=== PATIENT | female | born 2005 | race Caucasian/White ===

== ENCOUNTER 2024-06-05 15:50 | Emergency (ER) | payer BC, SELFPAY ==
[2024-06-05 16:03] VITALS: BP 120/72; PULSE 74; RESP 16; TEMP 37.1; O2SAT 100
--- NOTE | 2024-06-05 16:05 | ED.URI ---
HPI - URI/Sore Throat General Chief Complaint: Upper Respiratory Infection Stated Complaint: SORE THROAT/HEADACHE/SINUS PRESSURE/CP Time Seen by Provider: 06/05/24 16:05 Source: patient Mode of arrival: ambulatory Limitations: no limitations History of Present Illness HPI Narrative: Melody is a 19-year-old female patient presenting to the clinic today with complaints of low-grade fever, sore throat, headache, sinus pressure, congestion, feeling short of breath, chest discomfort with taking deep breaths. MD elicited complaint: sore throat and nasal congestion Related Data Home Medications ?Medication ?Instructions ?Recorded ?Confirmed ?Last Taken ?Type desogestrel 0.15 mg-ethinyl tablet 06/05/24 Unknown History estradiol 0.03 mg tablet (Isibloom) sertraline 50 mg tablet mg 06/05/24 Unknown History Review of Systems Review of Systems: Pertinent positives per HPI. Patient denies any rash, visual changes, dizziness, palpitations, nausea, vomiting, diarrhea, constipation, abdominal pain, or any urinary issues. PMFSH Comments At the time of my signature, I reviewed and agree with the nursing past medical, surgical, social, and family history. There is no relevant family history pertinent to the patient complaint. Exam Narrative: General: Well-developed, well nourished, in no apparent distress Head: Normocephalic, atraumatic Eyes: Pupils equally round and reactive to light bilaterally, EOM intact, sclera and conjunctive clear, no discharge, lids normal Ears: TMs intact and clear, ear canals clear, no drainage, grossly hearing normal. Nose: Nares patent, clear nasal discharge, no inflammation, no sinus tenderness. Mouth: Oral pharynx mildly red without lesions or masses, good dentition, MMM. Postnasal drip Neck: Supple, trachea midline, no enlargement of anterior or posterior cervical nodes, no thyroid masses or goiter palpable. Cardio: Regular rate and rhythm, s1 and s2 normal, no murmur appreciated. Resp: Clear to auscultation bilaterally, no rhonchi, rales, wheezing or rubs Course Course Emergency Course: Portions of this record may have been created with voice recognition software. Level of Care: Express Care Visit Vital Signs Vital signs: Vital Signs Temperature 37.1 C 06/05/24 16:03 Pulse Rate 74 06/05/24 16:03 Respiratory Rate 16 06/05/24 16:03 Blood Pressure 120/72 06/05/24 16:03 Pulse Oximetry 100 06/05/24 16:03 Temperature 37.1 C 06/05/24 16:03 Pulse Rate 74 06/05/24 16:03 Respiratory Rate 16 06/05/24 16:03 Blood Pressure 120/72 06/05/24 16:03 Pulse Oximetry 100 06/05/24 16:03 Vital signs reviewed MDM - URI/Sore Throat MDM Narrative Medical decision making narrative: At the time of visit patient is resting comfortably on the exam table. Patient appears to be nontoxic. Plan: Patient declined strep testing. States her symptoms have been going on x1 week. Is having clear phlegm and nasal drainage. States that she is having some discomfort with inspiration but is not in any respiratory distress. Vital signs are stable. She is afebrile at this time. I suspect she has got URI with cough and congestion. Prescription for albuterol inhaler and prednisone was sent to the pharmacy. Supportive measures were discussed with the patient and they voiced understanding discharge instructions and agrees to treatment plan. Return precautions reviewed Differential Diagnosis Differential diagnosis: Likely upper respiratory infection, otitis media, sinusitis, viral infection, bronchitis, influenza, pharyngitis and other (COVID) Discharge Plan Discharge Clinical Impression: Upper respiratory infection with cough and congestion Patient Disposition: Home, Self-Care Condition: Stable Instructions: Antibiotic Form, Cold Symptoms (ED) Additional Instructions: Lung sounds are clear in the clinic today and there is no sign of a bacterial infection. You declined strep test in the clinic today. Take prescription medications only as prescribed-albuterol inhaler and prednisone Increase fluids and stay well hydrated Tylenol/motrin for pain/fever Flonase and OTC antihistamines as directed Vicks vapor rub to open sinuses Sinus rinses for congestion Cepacol spray, cough drops, throat lozenges, warm tea with honey/lemon, gargle salt water to soothe throat BRAT diet for diarrhea Clear liquids x 24 hours then advance as tolerated for nausea/vomiting Go to the ED if you develop a worsening in your condition- high fever not controlled by Tylenol or Motrin, dehydration, weakness, lethargy, shortness of breath, or chest pain. Follow up with your PCP in 3-5 days if symptoms persist. Patient Language: Bulgarian Prescriptions: New prednisone 20 mg tablet 40 mg PO DAILY 5 Days Qty: 10 0RF albuterol sulfate 90 mcg/actuation HFA aerosol inhaler 2 puff inhalation Q4-6H PRN (Reason: shortness of breath or wheezing) 30 Days Qty: 8.5 0RF No Action desogestrel-ethinyl estradiol [Isibloom] 0.15-0.03 mg tablet sertraline 50 mg tablet Follow-up/Referrals: Keesha,Nancy [Other] Stand Alone Forms: Work/School Release IP Time of Disposition: 16:12 Quality NIHSS Nursing Documentation ED NIHSS nursing documentation: reviewed/agree
== END 2024-06-05 16:18 | disposition home or self-care (01) ==
PROVIDERS: Emergency Provider Nurse Practitioner Family
DX: J06.9 Acute upper respiratory infection, unspecified (principal); R05.9 Cough, unspecified
CPT/HCPCS: 99203; G0463

== ENCOUNTER 2024-08-01 16:50 | Emergency (ER) | payer BC, SELFPAY ==
--- OUTSIDE RECORDS SUMMARY | 2024-08-01 16:52 | XMS_ITS | Encounter Summary ---
Author Organization [facility] Address [address] [place] [address] Phone Care Team Providers Care Lower In Supervisor Name Role Phone Nancy Thao DO Primary Care Prov ider Reason for Visit * Reason Comments Medication Refill Encounter Details Date Type Department Care Team (Late st Contact Info) Description 02/03/2023 Refill [facility] - [place] [facility] [place] [address] [facility] [address] [place], [place] [address] Nancy Thao DO [address] [facility] [address] [place] [address] Medication Refill Social History Tobacco Use Types Packs/Day Years Used Date Smoking Tobacco: Never Smokeless Tobacco: Never Alcohol Use Standard Drinks/Week Comments Yes 0 (1 standard drink = 0.6 oz pur e alcohol) socially PHQ-2 Answer Date Recorded Total Score - Questions 1-9 11 01/2022 Sexually Active Control Partners Comments Never Comments No Sex and Gender Information Value Date Recorded Sex Assigned at Not on file Legal Sex Female 3:03 AM BLEACHER LARD Gender Identity Not on file Sexual Orientation Not on file COVID-19 Exposure Response Date Recorded In the last 10 days, have yo u been in contact with someone who was confirmed or suspected to have Coronavirus/COVID-19? No / Unsure 02/06/2023 1:09 PM CDT documented as of this encounter Miscellaneous Notes * Telephone Encounter - Toya Falk RN - 02/03/2023 11:25 AM CDT Medication failed the protocol, provider to review and approve the medication order if appropriate. Requested Prescriptions Pending Prescriptions Disp Refills sertraline (ZOLOFT) 50 MG Tablet [Pharmacy Med Name: SERTRALINE 50MG TABLETS] 30 Tablet 0 Sig: TAKE 1 TABLET BY MOUTH DAILY SSRI (6 Month Refill Only) Protocol Failed - 02/03/2023 11:17 AM Failed - Has an encounter in the past 6 months with a depression, anxiety, adjustment disorder, OCD, or PTSD visit diagnosis Passed - No test in the past 12 months or most recent test was negative Passed - No active on record Passed - Visit with relevant provider in past 6 months or upcoming 90 days Recent Visits Date Type Provider Dept 11/30/22 Office Visit Nancy Thao, DO [facility] [place] [address] Showing recent visits within past 182 days and meeting all other requirements Future Appointments No visits were found meeting these conditions. Showing future appointments within next 90 days and meeting all other requirements Passed - Patient has established therapy with SSRI for at least 6 months documented in this encounter Plan of Treatment Not on file documented as of this encounter Goals Goal Patient Goal Type Associated Problems Recent Progress Patient-Stated? Author Being able to cope better with anxiety Behavioral Health On track(2024 2:35 PM BLEACHER LARD) Yes Zoe Espinal LCPC Note: Goal Reviewed with: patient Readiness to change: Ready to change Department associated with goal: [facility] Steps to achieve goal: Identify skills to relieve feelings of being overwhelmed Identfy thinking errors that feed anxious thoughts Identify reframes for errors for anxiety Identify relaxation skills Having motivation to do things Behavioral Health Improving( 9:24 AM BLEACHER LARD) Yes Zoe Espinal LCPC Note: Goal Reviewed with: patient Readiness to change: Ready to change Department associated with goal: [facility] - [facility] Steps to achieve goal: Reduce motivationless days to one day a week instead of three Identify incentives to help motivate Main issues are school and home responsibilities- what affects only me Improve sleep Behavioral Health No Zoe Espinal LCPC Note: Goal Reviewed with: patient Readiness to change: Ready to change Department associated with goal: [facility] Steps to achieve goal: Identify techniques to help with falling asleep at night Identify good sleep hygiene Improve to 7 or 8 hours a night most nights Be able to do something once and not worry that something bad is going to happen Behavioral Health On track(2022 9:24 AM BLEACHER LARD) Yes Zoe Espinal LCPC Note: Goal Reviewed with: patient Readiness to change: Ready to change Department associated with goal: [facility] Steps to achieve goal: Identify the compulsions that must be done three times Identify thinking errors that feed these anxiety provoking compulsions Reframes Medication management- coordinate with doctor documented as of this encounter Visit Diagnoses Not on filedocumented in this encounter Additional Health Concerns Infection Onset Date Last Indicated Resolved Time COVID - 19 11/25/2023 11/25/2023 11/25/2023 3:24 PM CDT Assessment Noted Time PHQ-9 Depression Total Score: 18 06/ 021 10:51 AM CDT documented as of this encounter Care Teams Lower In Supervisor Relationship Specialty Start Date End Date Nancy Thao DO [address] [facility] [address] [place] [address] PCP - General 11/13/08 documented as of this encounter
--- OUTSIDE RECORDS SUMMARY | 2024-08-01 16:52 | XMS_ITS | Encounter Summary ---
Author Organization [facility] Address [address] [place] [address] Phone Care Team Providers Care Center Aisle Cashier Name Role Phone Joeodalisramonita Nancy Aruna DO Primary Care Prov ider Reason for Visit * Reason Comments Medication Refill Encounter Details Date Type Department Care Team (Late st Contact Info) Description 01/05/2021 Refill [facility] - [facility] - [place] for Health [place] [address] [facility] [address] [place] [address] Patrice Spear MD [address] [facility] [address] [place] [address] Medication Refill Social History Tobacco Use Types Packs/Day Years Used Date Smoking Tobacco: Never Smokeless Tobacco: Never Alcohol Use Standard Drinks/Week Comments No 0 (1 standard drink = 0.6 oz pur e alcohol) PHQ-2 Answer Date Recorded Total Score - Questions 1-9 18 06/0 07/2020 Sexually Active Control Partners Comments Never Comments No Sex and Gender Information Value Date Recorded Sex Assigned at Not on file Legal Sex Female 3:03 AM LANDS RESOURCE MANAGER Gender Identity Not on file Sexual Orientation Not on file COVID-19 Exposure Response Date Recorded In the last month, have you been in contact with someone who was confirmed or suspected to have Coronavirus / COVID-19? No / Unsure 01/08/2021 8:08 AM CDT documented as of this encounter Miscellaneous Notes * Telephone Encounter - Tish Rodríguez RN - 01/06/2021 9:03 AM CDT Requesting refill on Prozac 10 mg Last refill 10/08/20 (90 days) TYRESE 10/08/20 (anxiety); 01/01/19 ([facility]) NOV none, was supposed to follow-up in 4 weeks Spoke to mom. Patient is no longer taking Prozac. Didn't like how it made her feel. They already turned bottle into pharmacy. No refill needed. Routing to PCP as FYI. documented in this encounter Plan of Treatment Not on file documented as of this encounter Goals Goal Patient Goal Type Associated Problems Recent Progress Patient-Stated? Author Being able to cope better with anxiety Behavioral Health On track(2024 2:35 PM LANDS RESOURCE MANAGER) Yes Zoe Espinal LCPC Note: Goal Reviewed with: patient Readiness to change: Ready to change Department associated with goal: [facility] - [facility] Steps to achieve goal: Identify skills to relieve feelings of being overwhelmed Identfy thinking errors that feed anxious thoughts Identify reframes for errors for anxiety Identify relaxation skills Having motivation to do things Behavioral Health Improving( 9:24 AM LANDS RESOURCE MANAGER) Yes Zoe Espinal LCPC Note: Goal Reviewed with: patient Readiness to change: Ready to change Department associated with goal: [facility] - [facility] Steps to achieve goal: Reduce motivationless days to one day a week instead of three Identify incentives to help motivate Main issues are school and home responsibilities- what affects only me Improve sleep Behavioral Health No Zoe Espinal LCPC Note: Goal Reviewed with: patient Readiness to change: Ready to change Department associated with goal: [facility] - [facility] Steps to achieve goal: Identify techniques to help with falling asleep at night Identify good sleep hygiene Improve to 7 or 8 hours a night most nights Be able to do something once and not worry that something bad is going to happen Behavioral Health On track(2022 9:24 AM LANDS RESOURCE MANAGER) Yes Zoe Espinal, PAROLE DIRECTOR Note: Goal Reviewed with: patient Readiness to change: Ready to change Department associated with goal: [facility] - [facility] Steps to achieve goal: Identify the compulsions that must be done three times Identify thinking errors that feed these anxiety provoking compulsions Reframes Medication management- coordinate with doctor documented as of this encounter Visit Diagnoses Diagnosis Anxiety and depression Dysthymic disorder documented in this encounter Additional Health Concerns Infection Onset Date Last Indicated Resolved Time COVID - 19 Confirmed 05/07/2021 05/07/2021 022 12:16 AM LANDS RESOURCE MANAGER COVID - 19 02/28/2022 02/28/2022 03/10/2022 12:1 9 AM CDT COVID - 19 11/25/2023 11/25/2023 11/25/2023 3:24 PM CDT Assessment Noted Time PHQ-9 Depression Total Score: 18 021 10:51 AM CDT documented as of this encounter Care Teams Center Aisle Cashier Relationship Specialty Start Date End Date Nancy Thao DO [address] [place] [address] PCP - General 11/13/08 documented as of this encounter
--- OUTSIDE RECORDS SUMMARY | 2024-08-01 16:52 | XMS_ITS | Encounter Summary ---
Author Organization [facility] Address [address] [place] [address] Phone Care Team Providers Care Contracts Manager Name Role Phone Nancy Thao DO Primary Care Prov ider Reason for Visit * Reason Comments Medication Refill Encounter Details Date Type Department Care Team (Late st Contact Info) Description 04/05/2023 Refill [facility] - [place] for Health [place] [address] [facility] [address] [place] [address] Nancy Thao DO [address] [facility] [address] [place] [address] Medication Refill Social History Tobacco Use Types [...] on file Legal Sex Female 3:03 AM PRIMER INSERTING MACHINE ADJUSTER Gender Identity Not on file Sexual Orientation Not on file documented as of this encounter Miscellaneous Notes * Telephone Encounter - Angelique Hernandez RN - 04/05/2023 6:18 PM CST Requested Prescriptions Pending Prescriptions Disp Refills sertraline (ZOLOFT) 50 MG Tablet [Pharmacy Med Name: SERTRALINE 50MG TABLETS] 30 Tablet 0 Sig: TAKE 1 TABLET BY MOUTH DAILY SSRI (6 Month Refill Only) Protocol Failed - 04/05/2023 6:16 PM Failed - Has an encounter in the [...] Dept 11/30/22 Office Visit Nancy Thao, DO [facility] [place] [address] Showing recent visits within past 182 days and meeting all other requirements Future Appointments No visits were found meeting these conditions. Showing future appointments within next 90 days and meeting all other requirements Passed - Patient has established therapy with SSRI for at least 6 months ER INSERTING MACHINE ADJUSTER documented in this encounter Plan of Treatment Not on file documented as of this encounter Goals Goal Patient Goal Type Associated Problems Recent Progress Patient-Stated? Author Being able to cope better with anxiety Behavioral Health On track(2024 2:35 PM PRIMER INSERTING MACHINE ADJUSTER) Yes Zoe Espinal LCPC Note: Goal Reviewed with: patient Readiness to change: Ready to change Department associated with goal: [facility]IOR[facility] - [facility]OLESC[facility] Steps to achieve goal: Identify skills to relieve feelings of being overwhelmed Identfy thinking errors that feed anxious thoughts Identify reframes for errors for anxiety Identify relaxation skills Having motivation to do things Behavioral Health Improving( 9:24 AM PRIMER INSERTING MACHINE ADJUSTER) Yes Zoe Espinal LCPC Note: Goal Reviewed with: patient Readiness to change: Ready to change Department associated with goal: [facility] BE[facility]IORAL [facility] - [facility]OLESC[facility] Steps to achieve goal: Reduce motivationless days to one day a week instead of three Identify incentives to help motivate Main issues are school and home responsibilities- what affects only me Improve sleep Behavioral Health No Zoe Espinal LCPC Note: Goal Reviewed with: patient Readiness to change: Ready to change Department associated with goal: [facility] - [facility] Steps to achieve goal: Identify techniques to help with falling asleep at night Identify good sleep hygiene Improve to 7 or 8 hours a night most nights Be able to do something once and not worry that something bad is going to happen Behavioral Health On track(2022 9:24 AM PRIMER INSERTING MACHINE ADJUSTER) Yes Zoe Espinal, [facility] Note: Goal Reviewed with: patient Readiness to change: Ready to change Department associated with goal: [facility] BE[facility]IORAL [facility] - CHILD [facility]OLESC[facility] Steps [...] documented as of this encounter Care Teams Contracts Manager Relationship Specialty Start Date End Date Nancy Thao DO [address] [place] [address] PCP - General 11/13/08 documented as of this encounter
--- OUTSIDE RECORDS SUMMARY | 2024-08-01 16:52 | XMS_ITS | Clinical Summary ---
Author Organization [facility] Address [address] [place] [id number] Care Team Providers Care Rotary Drier Name Role Phone Nancy Thao DO Primary Care Prov ider Allergies Active Allergy Reactions Criticality Noted Date Comments No Known Drug Allergy Unknown 12/07/2012 Pineapple Hives 04/20/2018 Medications Isibloom 0.15-30 MG-MCG Tablet TAKE 1 TABLET BY MOUTH ONCE A DAY 3 Active sertraline (ZOLOFT) 50 MG Tablet TAKE 1 TABLET BY MOUTH DAILY 90 Tablet 3 4 Active tobramycin (TOBREX) 0.3 % Solution INSTILL 1 DROP IN LEFT EYE EVERY 4 HOURS FOR 7 DAYS 5 Active albuterol 108 (90 Base) MCG/ACT Aerosol Solution take 2 Puffs by inhalation every 4 hours as needed for Wheezing or Cough. 5 Active melatonin 3 MG Tablet Take 3 mg by mouth nightly. Active methylPREDNISol one (MEDROL) 4 MG Tablet 6 tabs day 1, 5 tabs day 2, 4 tabs day 3, 3 tabs day 4, 2 tabs day 5, 1 tab day 6 21 Tablet 5 Active Active Problems Problem Noted Date Diagnosed Date Vasovagal syncope 12/14/2023 normal metabolic screen 12/24/2008 Overview (11/27/2015): normal metabolic screen Normal hearing screen 12/24/2008 Encounters Date Type Department Care Team Description 06/27/2024 11:30 AM TITLE COORDINATOR Telemedicine [facility] [address] [place] [address] Mara Espinal, RESTORATION TECHNICIAN LASHAWN (generalized anxiety disorder) (Primary Dx) 06/25/2024 Travel 06/13/2024 9:55 AM TITLE COORDINATOR Urgent Care Visit [facility] [place] [address] [place] [place] [address] Beatriz Ayala APRN, POST CLOSING SPECIALIST Hives (Primary Dx) Discharge Disposition: Discharged to home or Selfcare 06/11/2024 9:30 AM TITLE COORDINATOR Telemedicine [facility] [address] [place] [address] Mara Espinal, RESTORATION TECHNICIAN Adjustment disorder, unspecified type (Primary Dx) 06/11/2024 Travel 06/05/2024 Telephone [facility] Medical [facility] Pediatric[facility] [address] [place] [address] Nancy Thao DO 06/05/2024 Travel 05/30/2024 11:30 AM TITLE COORDINATOR Telemedicine [facility] [address] [place] [address] Mara Espinal, RESTORATION TECHNICIAN Adjustment disorder, unspecified type (Primary Dx) 05/30/2024 Travel 05/13/2024 3:00 PM TITLE COORDINATOR Telemedicine [facility] [address] [place] [address] Mara Espinal, RESTORATION TECHNICIAN Adjustment disorder, unspecified type (Primary Dx) 05/13/2024 Travel from Last 3 Months Immunizations Immunization Administration Dates Next Due Covid-19, Mrna, Lnp-s, Pf, 3 0 Mcg/0.3 Ml Dose ([employer]) 08/31/2020,08/10/2020 DTAP VACCINE 09/23/2005 DTAP/HEPB/IPV Vaccine 2004,2004,05/09 HIB Vaccine (PRP-T) 03/28/2005, 5,2004,05/27 Hepatitis A Vaccine 10/12/2007 Hepatitis A Vaccine, Pediatric/adolescent, 2 Dose Schedule 11/01/2017 Human Papillomavirus (HPV) 9 -valent Vaccine 11/01/2017 Influenza Vaccine 02/22/2024 Influenza Vaccine greater than 3 yrs 03/28/2005 MMR Vaccine 03/28/2005 Meningococcal MCV4O 01/14/2022 PUR DTAP UNDER 7 YRS IM 12/25/2009 PUR FLU PRES FREE AGE 3+ FULL IM 03/28/2008 PUR HEP A PED ADOLES 2 DOSE IM 03/28/2008 PUR Human Papillomavirus 9-v alent Vaccine 11/27/2015 PUR MENINGOCOCCAL MCV4O 11/27/2015 PUR MMR AND VARICELLA SQ INJ 12/25/2009 PUR POLIO IPV INACTIVATED SQ/IM 12/25/2009 PUR TDAP 7+ YRS IM 01/28/2015 Pneumococcal Vaccine Peds 03/28/2005,10/2004,2004,05/27 Varicella Vaccine Live 09/23/2005 Family History Medical History Relation Name Comments No Known Problems Brother No Known Problems Father Hypertension Maternal Grandfather Stroke Maternal Grandfather Cancer Maternal Grandmother Diabetes Maternal Grandmother Cancer Maternal Uncle 1 [place] [employer] [place] Cancer Maternal Uncle 2 throat canc er, HPV related Diabetes Mother gestational Hypertension Paternal Grandfather Allergies Neg Hx Amblyopia Neg Hx Anemia Neg Hx Asthma Neg Hx Bleeding Disorder Neg Hx Cystic Fibrosis Neg Hx Deafness Neg Hx Eczema Neg Hx Heart Attack Neg Hx Heart Disease Neg Hx Kidney Disease Neg Hx Scoliosis Neg Hx Seizures Neg Hx Sickle Cell Anemia Neg Hx Sudden Infant Syndrome Neg Hx Tuberculosis Neg Hx Relation Name Status Comments Brother Father Maternal Grandfather Maternal Grandmother Maternal Uncle 1 Maternal Uncle 2 Mother Paternal Grandfather Social History Tobacco Use Types Packs/Day Years Used Date Smoking Tobacco: Never Passive Smoke Exposure: Never Smokeless Tobacco: Never Alcohol Use Standard Drinks/Week Comments Yes 0 (1 standard drink = 0.6 oz pur e alcohol) Socially PHQ-2 Answer Date Recorded Total Score - Questions 1-9 14 11/07 Comments No Sex and Gender Information Value Date Recorded Sex Assigned at Not on file Legal Sex Female 3:03 AM TITLE COORDINATOR Gender Identity Not on file Sexual Orientation Not on file Last Filed Vital Signs Vital Sign Reading Time Taken Comments Blood Pressure 102/76 06/13/2024 10:13 AM TITLE COORDINATOR Pulse 78 06/13/2024 10:13 AM TITLE COORDINATOR Temperature 37.3 C (99.2 F) 06/13/2024 10:13 AM TITLE COORDINATOR Respiratory Rate 14 06/13/2024 10:13 AM TITLE COORDINATOR Oxygen Saturation 98% 06/13/2024 10:13 AM TITLE COORDINATOR Inhaled Oxygen Concentration - - Weight 70.3 kg (155 lb) 06/13/2024 10:13 AM TITLE COORDINATOR Height 163.2 cm (5' 4.25 ) 12/15/2023 10:20 AM C DT Body Mass Index 26.4 12/15/2023 10:20 AM CDT Plan of Treatment Health Maintenance Due Date Last Done Comments Hepatitis C Virus (HCV) Screening 2004 Meningococcal B Immunization (1 of 2 - Standard) 2020 SARS-COV-2 Immunization ( - season) 2024 06/07/2021, 08/31/2020, 08/10/2020 DTaP/Tdap/Td Immunization (7 - Td or Tdap) 01/28/2025 01/28/2015, 12/25/2009, 09/23/2005, Additional history exists Respiratory Syncytial Virus (RSV) Immunization (Adult) (1 - 1-dose 75+ series) 2079 Hepatitis B Immunization Completed 005, 2004, 2004 Pneumococcal Immunization Combined Aged Out 03/28/2005, 2004, 2004, Additional history exists No longer eligible based on patient's age to complete this topic Measles Mumps Rubella (MMR) Immunization Discontinued 12/25/2009, 03/28/2005 Polio (IPV) Immunization Discontinued 010, 2004, 2004, Additional history exists Varicella Immunization Discontinued 12/25/2009, 2005 Hepatitis A Immunization Discontinued 018, 03/28/2008, 10/12/2007 Human Papillomavirus (HPV) Immunization Completed 11/01/2017, 11/27/2015 Meningococcal Immunization (ACWY) Completed 01/14/2022, 11/27/2015 Influenza Immunization Completed , 03/28/2008, 03/28/2005 Rotavirus Immunization Aged Out No lo nger eligible based on patient's age to complete this topic Goals Goal Patient Goal Type Associated Problems Recent Progress Patient-Stated? Author Being able to cope better with anxiety Behavioral Health On track(2024 2:35 PM TITLE COORDINATOR) Yes Zoe Espinal LCPC Note: Goal Reviewed with: patient Readiness to change: Ready to change Department associated with goal: [facility] - [facility] Steps to achieve goal: Identify skills to relieve feelings of being overwhelmed Identfy thinking errors that feed anxious thoughts Identify reframes for errors for anxiety Identify relaxation skills Having motivation to do things Behavioral Health Improving( 9:24 AM TITLE COORDINATOR) Yes Zoe Espinal LCPC Note: Goal Reviewed with: patient Readiness to change: Ready to change Department associated with goal: [facility] - [facility]OLESC[facility] Steps to achieve goal: Reduce motivationless days to one day a week instead of three Identify incentives to help motivate Main issues are school and home responsibilities- what affects only me Improve sleep Behavioral Health No Zoe Espinal LCPC Note: Goal Reviewed with: patient Readiness to change: Ready to change Department associated with goal: [facility] - [facility]OL[facility] Steps to achieve goal: Identify techniques to help with falling asleep at night Identify good sleep hygiene Improve to 7 or 8 hours a night most nights Be able to do something once and not worry that something bad is going to happen Behavioral Health On track(2022 9:24 AM TITLE COORDINATOR) Yes Zoe Espinal LCPC Note: Goal Reviewed with: patient Readiness to change: Ready to change Department associated with goal: [facility] - [facility]OL[facility] Steps to achieve goal: Identify the compulsions that must be done three times Identify thinking errors that feed these anxiety provoking compulsions Reframes Medication management- coordinate with doctor Insurance [facility] [place] [facility] Care Teams Rotary Drier Relationship Specialty Start Date End Date Nancy Thao DO [address] [facility] [address] [place] [address] PCP - General 11/13/08
--- OUTSIDE RECORDS SUMMARY | 2024-08-01 16:52 | XMS_ITS | Encounter Summary ---
Author Organization [facility] Address [address] [place] [address] Phone Care Team Providers Care Hydrogen Power Plant Manager Name Role Phone Nancy Thao DO Primary Care Prov ider Reason for Visit * Reason Comments Medication Refill Encounter Details Date Type Department Care Team (Late st Contact Info) Description 03/05/2023 Refill [facility] - [place] [facility] [place] [address] [facility] [address] [place], [place] [id number] Nancy Thao DO [address] [facility] [address] [place] [address] Medication Refill Social History Tobacco Use Types [...] on file Legal Sex Female 3:03 AM OFFICE MACHINE SERVICER Gender Identity Not on file Sexual Orientation Not on file COVID-19 Exposure Response Date Recorded In the last 10 days, have yo u been in contact with someone who was confirmed or suspected to have Coronavirus/COVID-19? No / Unsure 02/06/2023 1:09 PM CDT documented as of this encounter Miscellaneous Notes * Telephone Encounter - Aissatou Alvarez RN - 03/06/2023 7:13 AM CDT Medication failed the protocol, provider to review and approve the medication order if appropriate. Requested Prescriptions Pending Prescriptions Disp Refills sertraline (ZOLOFT) 50 MG Tablet [Pharmacy Med Name: SERTRALINE 50MG TABLETS] 30 Tablet 0 Sig: TAKE 1 TABLET BY MOUTH DAILY SSRI (6 Month Refill Only) Protocol Failed - 03/05/2023 10:37 PM Failed - Has an encounter in [...] Dept 11/30/22 Office Visit [facility], [facility] [place] [address] Showing recent visits within past [...] anxiety Behavioral Health On track(2024 2:35 PM OFFICE MACHINE SERVICER) Yes Zoe Espinal LCPC Note: Goal Reviewed with: patient Readiness to change: Ready to change Department associated with goal: [facility] - CHILD ADOLESCENT Steps to achieve goal: Identify skills to relieve feelings of being overwhelmed Identfy thinking errors that feed anxious thoughts Identify reframes for errors for anxiety Identify relaxation skills Having motivation to do things Behavioral Health Improving( 9:24 AM OFFICE MACHINE SERVICER) Yes Zoe Espinal LCPC Note: Goal Reviewed with: patient Readiness to change: Ready to change Department associated with goal: [facility] - [facility]ILD [facility]OLESC[facility] Steps to achieve goal: Reduce motivationless days to one day a week instead of three Identify incentives to help motivate Main issues are school and home responsibilities- what affects only me Improve sleep Behavioral Health No Zoe Espinal LCPC Note: Goal Reviewed with: patient Readiness to change: Ready to change Department associated with goal: [facility] - [facility]OLESC[facility] Steps to achieve goal: Identify techniques to help with falling asleep at night Identify good sleep hygiene Improve to 7 or 8 hours a night most nights Be able to do something once and not worry that something bad is going to happen Behavioral Health On track(2022 9:24 AM OFFICE MACHINE SERVICER) Yes Zoe Espinal LCPC Note: Goal Reviewed with: patient Readiness to change: Ready to change Department associated with goal: [facility] - [facility]OL[facility] Steps [...] Noted Time PHQ-9 Depression Total Score: 18 06/2 021 10:51 AM CDT documented as of this encounter Care Teams Hydrogen Power Plant Manager Relationship Specialty Start Date End Date Nancy Thao DO [address] [place] [address] PCP - General 11/13/08 documented as of this encounter
--- OUTSIDE RECORDS SUMMARY | 2024-08-01 16:52 | XMS_ITS | Encounter Summary ---
Author Organization [facility] Address [address] [place] [address] Phone Care Team Providers Care Bricklayer Tender Name Role Phone Nancy Thao DO Primary Care Prov ider Reason for Visit * Reason Comments Medication Refill Encounter Details Date Type Department Care Team (Late st Contact Info) Description 12/07/2022 Refill [facility] - [place] [facility] [place] [address] [facility] [address] [place], [place] [id number] Nancy Thao DO [address] [facility] [address] [place] [address] Medication Refill Social History Tobacco Use Types [...] on file Legal Sex Female 3:03 AM FABRICATION OPERATOR Gender Identity Not on file Sexual Orientation Not on file COVID-19 Exposure Response Date Recorded In the last 10 days, have yo u been in contact with someone who was confirmed or suspected to have Coronavirus/COVID-19? No / Unsure 11/30/2022 2:22 PM CDT documented as of this encounter Miscellaneous Notes * Telephone Encounter - Edy Ritter RN - 12/08/2022 2:02 PM CDT Medication failed the protocol, provider to review and approve the medication order if appropriate. Requested Prescriptions Pending Prescriptions Disp Refills sertraline (ZOLOFT) 50 MG Tablet [Pharmacy Med Name: SERTRALINE 50MG TABLETS] 30 Tablet 0 Sig: TAKE 1 TABLET BY MOUTH DAILY SSRI (6 Month Refill Only) Protocol Failed - 12/07/2022 12:26 PM Failed - Has an encounter in [...] Dept 11/30/22 Office Visit Nancy Thao, DO [facility] [place] [address] Showing recent visits within past [...] anxiety Behavioral Health On track(2024 2:35 PM FABRICATION OPERATOR) Yes Zoe Espinal LCPC Note: Goal Reviewed with: patient Readiness to change: Ready to change Department associated with goal: [facility]AV[facility] - CHILD ADOLESCENT Steps to achieve goal: Identify skills to relieve feelings of being overwhelmed Identfy thinking errors that feed anxious thoughts Identify reframes for errors for anxiety Identify relaxation skills Having motivation to do things Behavioral Health Improving( 9:24 AM FABRICATION OPERATOR) Yes Zoe Espinal LCPC Note: Goal Reviewed with: patient Readiness to change: Ready to change Department associated with goal: [facility] - [facility]OLESC[facility] Steps to achieve goal: Reduce motivationless days to one day a week instead of three Identify incentives to help motivate Main issues are school and home responsibilities- what affects only me Improve sleep Behavioral Health No Zoe Espinal LCPC Note: Goal Reviewed with: patient Readiness to change: Ready to change Department associated with goal: [facility] - CHILD [facility]OLESC[facility] Steps to achieve goal: Identify techniques to help with falling asleep at night Identify good sleep hygiene Improve to 7 or 8 hours a night most nights Be able to do something once and not worry that something bad is going to happen Behavioral Health On track(2022 9:24 AM FABRICATION OPERATOR) Yes Zoe Espinal LCPC Note: Goal Reviewed with: patient Readiness to change: Ready to change Department associated with goal: [facility] - CH[facility]OLESC[facility] Steps [...] Noted Time PHQ-9 Depression Total Score: 18 10/08/ 021 10:51 AM CDT documented as of this encounter Care Teams Bricklayer Tender Relationship Specialty Start Date End Date Nancy Thao DO [address] [place] [address] PCP - General 11/13/08 documented as of this encounter
--- OUTSIDE RECORDS SUMMARY | 2024-08-01 16:52 | XMS_ITS | Encounter Summary ---
Author Organization [facility] Address [address] [place] [address] Phone Care Team Providers Care Neonatal Social Worker Name Role Phone Nancy Thao DO Primary Care Prov ider Reason for Visit * Reason Comments Medication Refill Encounter Details Date Type Department Care Team (Late st Contact Info) Description 12/07/2021 Refill [facility] - [place] [facility] [place] [address] [facility] [address] [place] [address] Nancy Thao DO [address] [facility] [address] [place] [address] Medication Refill Social History Tobacco Use Types [...] on file Legal Sex Female 3:03 AM ENTRY MANAGER Gender Identity Not on file Sexual Orientation Not on file documented as of this encounter Miscellaneous Notes * Telephone Encounter - Toya Falk RN - 12/07/2021 9:23 AM CDT 08/11/2021 Nancy Thao, DO [facility] [place] [address] Other depression Sertraline 50 mg tablets-- 30 tabs and 1 refill Medication failed the protocol, routing to provider to review and approve the medication order. documented in this encounter Plan of Treatment Not on file documented as of this encounter Goals Goal Patient Goal Type Associated Problems Recent Progress Patient-Stated? Author Being able to cope better with anxiety Behavioral Health On track(2024 2:35 PM ENTRY MANAGER) Yes Zoe Espinal LCPC Note: Goal Reviewed with: patient Readiness to change: Ready to change Department associated with goal: [facility] - CHILD ADOLESCENT Steps to achieve goal: Identify skills to relieve feelings of being overwhelmed Identfy thinking errors that feed anxious thoughts Identify reframes for errors for anxiety Identify relaxation skills Having motivation to do things Behavioral Health Improving( 9:24 AM ENTRY MANAGER) Yes Zoe Espinal LCPC Note: Goal Reviewed with: patient Readiness to change: Ready to change Department associated with goal: [facility] - CHILD ADOLESCENT Steps to achieve goal: Reduce motivationless days to one day a week instead of three Identify incentives to help motivate Main issues are school and home responsibilities- what affects only me Improve sleep Behavioral Health No Zoe Espinal LCPC Note: Goal Reviewed with: patient Readiness to change: Ready to change Department associated with goal: [facility] - CHILD ADOLESCENT Steps to achieve goal: Identify techniques to help with falling asleep at night Identify good sleep hygiene Improve to 7 or 8 hours a night most nights Be able to do something once and not worry that something bad is going to happen Behavioral Health On track(2022 9:24 AM ENTRY MANAGER) Yes Zoe Espinal LCPC Note: Goal Reviewed with: patient Readiness to change: Ready to change Department associated with goal: [facility] - CHILD ADOLESCENT Steps to achieve goal: Identify the compulsions that must be done three times Identify thinking errors that feed these anxiety provoking compulsions Reframes Medication management- coordinate with doctor documented as of this encounter Visit Diagnoses Not on filedocumented in this encounter Additional Health Concerns Infection Onset Date Last Indicated Resolved Time COVID - 19 02/28/2022 02/28/2022 03/10/2022 12:1 9 AM CDT COVID - 19 11/25/2023 11/25/2023 11/25/2023 3:24 PM CDT Assessment Noted Time PHQ-9 Depression Total Score: 18 021 10:51 AM CDT documented as of this encounter Care Teams Neonatal Social Worker Relationship Specialty Start Date End Date Nancy Thao DO [address] [place] [address] PCP - General 11/13/08 documented as of this encounter
--- OUTSIDE RECORDS SUMMARY | 2024-08-01 16:52 | XMS_ITS | Encounter Summary ---
Author Organization [facility] Address [address] [place] [address] Phone Care Team Providers Care Typist Name Role Phone Nancy Thao DO Primary Care Prov ider Reason for Visit * Reason Comments Medication Refill Encounter Details Date Type Department Care Team (Late st Contact Info) Description 11/06/2022 Refill [facility] - [facility] [place] [facility] [place] [address] [facility] [address] [place] [address] Nancy Thao DO [address] [facility] [address] [place] [address] Medication Refill Social History Tobacco Use Types [...] on file Legal Sex Female 3:03 AM SPOT CHECKER Gender Identity Not on file Sexual Orientation Not on file COVID-19 Exposure Response Date Recorded In the last 10 days, have yo u been in contact with someone who was confirmed or suspected to have Coronavirus/COVID-19? No / Unsure 10/31/2022 7:56 AM CDT documented as of this encounter Miscellaneous Notes * Telephone Encounter - Alyssa Mai RN - 11/07/2022 7:34 AM CDT Medication failed the protocol, provider to review and approve the medication order if appropriate. Requested Prescriptions Pending Prescriptions Disp Refills sertraline (ZOLOFT) 50 MG Tablet [Pharmacy Med Name: SERTRALINE 50MG TABLETS] 30 Tablet 0 Sig: TAKE 1 TABLET BY MOUTH DAILY SSRI (6 Month Refill Only) Protocol Failed - 11/06/2022 9:24 AM Failed - Visit with relevant provider in past 6 months or upcoming 90 days Recent Visits No visits were found meeting these conditions. Showing recent visits within past 182 days and meeting all other requirements Future Appointments No visits were found meeting these conditions. Showing future appointments within next 90 days and meeting all other requirements Passed - No test in the past 12 months or most recent test was negative Passed - No active on record Passed - Patient has established therapy with SSRI for at least 6 months Passed - Has an encounter in the past 6 months with a depression, anxiety, adjustment disorder, OCD, or PTSD visit diagnosis documented in this encounter Plan of Treatment Not on file documented as of this encounter Goals Goal Patient Goal Type Associated Problems Recent Progress Patient-Stated? Author Being able to cope better with anxiety Behavioral Health On track(2024 2:35 PM SPOT CHECKER) Yes Zoe Espinal LCPC Note: Goal Reviewed with: patient Readiness to change: Ready to change Department associated with goal: [facility] - [facility] Steps to achieve goal: Identify skills to relieve feelings of being overwhelmed Identfy thinking errors that feed anxious thoughts Identify reframes for errors for anxiety Identify relaxation skills Having motivation to do things Behavioral Health Improving( 9:24 AM SPOT CHECKER) Yes Zoe Espinal LCPC Note: Goal Reviewed with: patient Readiness to change: Ready to change Department associated with goal: [facility] - [facility] Steps to achieve goal: Reduce motivationless days to one day a week instead of three Identify incentives to help motivate Main issues are school and home responsibilities- what affects only me Improve sleep Behavioral Health No Zoe Espinal LCPC Note: Goal Reviewed with: patient Readiness to change: Ready to change Department associated with goal: [facility] - [facility] Steps to achieve goal: Identify techniques to help with falling asleep at night Identify good sleep hygiene Improve to 7 or 8 hours a night most nights Be able to do something once and not worry that something bad is going to happen Behavioral Health On track(2022 9:24 AM SPOT CHECKER) Yes Zoe Espinal LCPC Note: Goal Reviewed with: patient Readiness to change: Ready to change Department associated with goal: [facility] - [facility] Steps to [...] documented as of this encounter Care Teams Typist Relationship Specialty Start Date End Date Nancy Thao DO [address] [place] [address] PCP - General 11/13/08 documented as of this encounter
--- OUTSIDE RECORDS SUMMARY | 2024-08-01 16:52 | XMS_ITS | Encounter Summary ---
Author Organization [facility] Address [address] 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 Requested Prescriptions Pending Prescriptions Disp Refills sertraline (ZOLOFT) 50 MG Tablet [Pharmacy Med Name: SERTRALINE 50MG TABLETS] 30 Tablet 0 Sig: TAKE 1 TABLET BY MOUTH DAILY SSRI (6 Month Refill Only) Protocol Failed - 11/27/2023 10:41 AM Failed - Visit with relevant provider in past 6 months or upcoming 90 days Recent Visits No visits were found meeting these conditions. Showing recent visits within past 182 days and meeting all other requirements Future Appointments No visits were found meeting these conditions. Showing future appointments within next 90 days and meeting all other requirements Failed - Has an encounter in the [...] anxiety Behavioral Health On track(2024 2:35 PM OLIVE PITTER) Yes Zoe Espinal LCPC Note: Goal Reviewed with: patient Readiness to change: Ready to change Department associated with goal: [facility] - [facility]OL[facility] Steps to achieve goal: Identify skills to relieve feelings of being overwhelmed Identfy thinking errors that feed anxious thoughts Identify reframes for errors for anxiety Identify relaxation skills Having motivation to do things Behavioral Health Improving( 9:24 AM OLIVE PITTER) Yes Zoe Espinal LCPC Note: Goal Reviewed with: patient Readiness to change: Ready to change Department associated with goal: [facility] - [facility] Steps to achieve goal: Reduce motivationless days to one day a week instead of three Identify incentives to help motivate Main issues are school and home responsibilities- what affects only me Improve sleep Behavioral Health No Zoe Espinal LCPC Note: Goal Reviewed with: patient Readiness to change: Ready to change Department associated with goal: [facility] - [facility] Steps to achieve goal: Identify techniques to help with falling asleep at night Identify good sleep hygiene Improve to 7 or 8 hours a night most nights Be able to do something once and not worry that something bad is going to happen Behavioral Health On track(2022 9:24 AM OLIVE PITTER) Yes Zoe Espinal LCPC Note: Goal Reviewed with: patient Readiness to change: Ready to change Department associated with goal: [facility] - [facility] Steps to achieve goal: Identify the compulsions that must be done three times Identify thinking errors that feed these anxiety provoking compulsions Reframes Medication management- coordinate with doctor documented as of this encounter Visit Diagnoses Not on filedocumented in this encounter Additional Health Concerns Assessment Noted Time PHQ-9 Depression Total Score: 18 021 10:51 AM CDT documented as of this encounter Care Teams Database Development Project Manager Relationship Specialty Start Date End Date Nancy Thao DO [address] [place] [address] PCP - General 11/13/08 documented as of this encounter
--- OUTSIDE RECORDS SUMMARY | 2024-08-01 16:52 | XMS_ITS | Encounter Summary ---
Author Organization [facility] Address [address] [place] [address] Phone Care Team Providers Care Internet Sales Associate Name Role Phone Nancy Thao DO Primary Care Prov ider Reason for Visit * Reason Comments Medication Refill Encounter Details Date Type Department Care Team (Late st Contact Info) Description 01/03/2023 Refill [facility] - [facility] - [place] [facility] [place] [address] [facility] [address] [place] [address] Nancy Thao DO [address] [facility] [address] [place] [address] Medication Refill Social History Tobacco Use Types [...] on file 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 Requested Prescriptions Pending Prescriptions Disp Refills sertraline (ZOLOFT) 50 MG Tablet [Pharmacy Med Name: SERTRALINE 50MG TABLETS] 30 Tablet 0 Sig: TAKE 1 TABLET BY MOUTH DAILY SSRI (6 Month Refill Only) Protocol Failed - 01/03/2023 11:24 AM Failed - Has an encounter in [...] Dept 11/30/22 Office Visit Nancy Thao, DO [facility] [place] [address] Showing recent visits within past [...] anxiety Behavioral Health On track(2024 2:35 PM CUSTOMER ACCOUNT ADMINISTRATOR) Yes Zoe Espinal LCPC Note: Goal Reviewed with: patient Readiness to change: Ready to change Department associated with goal: [facility] - [facility]OLES[facility] Steps to achieve goal: Identify skills to relieve feelings of being overwhelmed Identfy thinking errors that feed anxious thoughts Identify reframes for errors for anxiety Identify relaxation skills Having motivation to do things Behavioral Health Improving( 9:24 AM CUSTOMER ACCOUNT ADMINISTRATOR) Yes Zoe Espinal LCPC Note: Goal Reviewed with: patient Readiness to change: Ready to change Department associated with goal: [facility] - [facility] Steps to achieve goal: Reduce motivationless days to one day a week instead of three Identify incentives to help motivate Main issues are school and home responsibilities- what affects only me Improve sleep Behavioral Health No Zoe Espinal LCPC Note: Goal Reviewed with: patient Readiness to change: Ready to change Department associated with goal: [facility] - [facility] Steps to achieve goal: Identify techniques to help with falling asleep at night Identify good sleep hygiene Improve to 7 or 8 hours a night most nights Be able to do something once and not worry that something bad is going to happen Behavioral Health On track(2022 9:24 AM CUSTOMER ACCOUNT ADMINISTRATOR) Yes Zoe Espinal LCPC Note: Goal Reviewed with: patient Readiness to change: Ready to change Department associated with goal: [facility] CHILD ADOLESC[facility] Steps to achieve goal: Identify [...] documented as of this encounter Care Teams Internet Sales Associate Relationship Specialty Start Date End Date Nancy Thao DO [address] [place] [address] PCP - General 11/13/08 documented as of this encounter
--- OUTSIDE RECORDS SUMMARY | 2024-08-01 16:52 | XMS_ITS | Encounter Summary ---
Author Organization [facility] Address [address] 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 No / Unsure 11/30/2022 2:22 PM CDT documented as of this encounter Plan of Treatment Not on file documented as of this encounter Goals Goal Patient Goal Type Associated Problems Recent Progress Patient-Stated? Author Being able to cope better with anxiety Behavioral Health On track(2024 2:35 PM RECRUITING SPECIALIST) Yes Zoe Espinal LCPC Note: Goal Reviewed with: patient Readiness to change: Ready to change Department associated with goal: [facility] - CHILD ADOLESCENT Steps to achieve goal: Identify skills to relieve feelings of being overwhelmed Identfy thinking errors that feed anxious thoughts Identify reframes for errors for anxiety Identify relaxation skills Having motivation to do things Behavioral Health Improving( 9:24 AM RECRUITING SPECIALIST) Yes Zoe Espinal LCPC Note: Goal Reviewed with: patient Readiness to change: Ready to change Department associated with goal: [facility] - CHILD ADOLESCENT Steps to achieve goal: Reduce motivationless days to one day a week instead of three Identify incentives to help motivate Main issues are school and home responsibilities- what affects only me Improve sleep Behavioral Health No Zoe Espinal LCPC Note: Goal Reviewed with: patient Readiness to change: Ready to change Department associated with goal: [facility] - CHILD ADOLESCENT Steps to achieve goal: Identify techniques to help with falling asleep at night Identify good sleep hygiene Improve to 7 or 8 hours a night most nights Be able to do something once and not worry that something bad is going to happen Behavioral Health On track(2022 9:24 AM RECRUITING SPECIALIST) Yes Zoe Espinal LCPC Note: Goal Reviewed with: patient Readiness to change: Ready to change Department associated with goal: [facility] - CHILD ADOLESCENT Steps to [...] documented as of this encounter Care Teams Software Qa Manager Relationship Specialty Start Date End Date Nancy Thao DO [address] [place] [address] PCP - General 11/13/08 documented as of this encounter
[2024-08-01 16:57] VITALS: BP 106/83; PULSE 80; RESP 20; TEMP 37.1; O2SAT 98
--- NOTE | 2024-08-01 17:53 | ED_ITS ---
HPI - URI/Sore Throat General Chief Complaint: Upper Respiratory Infection Stated Complaint: sinus infection Time Seen by Provider: 08/01/24 17:40 Source: patient, RN notes reviewed and old records reviewed Mode of arrival: ambulatory Limitations: no limitations History of Present Illness HPI Narrative: 19 year old female who presents to [facility] care with complaints of cough, congestion, body aches, fever,headaches, sinus congestion and drainage, sinus pressure for the past 5 days. Patient reports she has been taking Tylenol and ibuprofen and also Sudafed for her symptoms. 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 elicited complaint: fever, cough, rhinorrhea, nasal congestion, sinus pain and other (body aches) Onset (ago): day(s) (5) Consistency: constant Pain scale (0-10): 5 Description of mucous: clear Able to tolerate fluids by mouth: Yes Treatments prior to arrival: acetaminophen, ibuprofen and other (Sudafed) Related Data Home Medications ?Medication ?Instructions ?Recorded ?Confirmed ?Last Taken ?Type desogestrel 0.15 mg-ethinyl tablet 06/05/24 Unknown History estradiol 0.03 mg tablet (Isibloom) sertraline 50 mg tablet mg 06/05/24 Unknown History Allergies Allergy/AdvReac Type Severity Reaction Status Date / Time No Known Allergies Allergy Verified 08/01/24 17:14 Review of Systems Review of Systems: CONSTITUTIONAL: reports malaise, chills, sweats, some low grade fever. EYES: Denies visual changes, redness, or discharge. ENT: Reports rhinorrhea, congestion, sinus pain,no otalgia and no sore throat. CARDIOVASCULAR: Denies chest pain, palpitations, or edema. RESPIRATORY: Reports cough.? Denies dyspnea. GASTROINTESTINAL: Denies abdominal pain, nausea, vomiting, diarrhea SKIN: Denies rash or itching. MUSCULOSKELETAL:Reports myalgia. NEUROLOGIC: reports frontal headache. All systems reviewed & are unremarkable except as noted in HPI and below [facility] Past Medical History Medical History (Updated 08/04/24 @ 11:57 by Angelique Monroe NP) Anxiety Social History Social History (Updated 08/01/24 @ 18:08 by Angelique Monroe NP) Smoking status: Never smoker Alcohol intake: never Substance use type: does not use Comments At time of signature, agree with nursing past medical, surgical, social and family history. There is no relevant family history pertinent to the presenting complaint Exam Narrative: GENERAL: Well-appearing, well-nourished, and in no acute distress. HEAD: Normocephalic EYES: PERRLA, conjunctivae clear ENT: Nares clear, turbinates edematous and erythematous, clear discharge, reports sinus pressure and frontal headache.. Mucous membranes moist. TM pearly millan with dull light reflex bilaterally; no tragal tenderness. Oropharynx erythematous without lesions. Tonsils not enlarged and without exudate, no drooling, no hoarseness, no trismus, uvula midline.post nasal discharge noted. NECK: Supple. No lymphadenopathy CHEST: Clear to auscultation, breath sounds equal. No wheezing, rhonchi, rales, or stridor. No respiratory distress, speaks in full sentences.dry cough noted, SAO2 98% on room air HEART: Regular rate and rhythm. No murmur heard. SKIN: Warm, dry, no rash. NEURO: Alert and oriented x3. PSYCH: Normal mood and affect Course Course Emergency Course: Patient is aware of diagnosis, understands and agrees to treatment plan.? Anticipatory guidance given.? Patient agrees to follow-up as directed and is aware of reasons to seek care at the emergency department. Portions of this record may have been created with voice recognition software Level of Care: Express Care Visit Vital Signs Vital signs: Vital Signs Temperature 37.1 C 08/01/24 16:57 Pulse Rate 80 08/01/24 16:57 Respiratory Rate 20 08/01/24 16:57 Blood Pressure 106/83 08/01/24 16:57 Pulse Oximetry 98 08/01/24 16:57 Oxygen Delivery Room Air 08/01/24 16:57 Temperature 37.1 C 08/01/24 16:57 Pulse Rate 80 08/01/24 16:57 Respiratory Rate 20 08/01/24 16:57 Blood Pressure 106/83 08/01/24 16:57 Pulse Oximetry 98 08/01/24 16:57 Oxygen Delivery Room Air 08/01/24 16:57 Reviewed MDM - URI/Sore Throat MDM Narrative Medical decision making narrative: Differential diagnosis considered: Rivas virus, strep pharyngitis, allergic rhinitis, upper respiratory tract infection, sinusitis, rhinosinusitis, nasopharyngitis. viral pharyngitis, otitis media, otitis externa, pneumonia, bronchitis, viral cough syndrome, viral syndrome, and influenza.? Exam findings show no acute concerns or changes; patient is non-toxic appearing and is in no distress.? Patient is appropriate for outpatient treatment and follow-up. Differential Diagnosis Differential diagnosis: Likely upper respiratory infection, sinusitis, viral infection, influenza and other (COVID) Medical Records Attestation: I reviewed the patient's medical records. Lab Data Attestation: I reviewed the patient's lab results. Lab results narrative: Influenza A negative, Influenza B negative, COVID antigen negative Labs: Lab Results 08/01/24 Range/Units 17:00 POC Influenza A Ag Negative (Negative) POC Influenza B Ag Negative (Negative) POC SARS CoV-2 Ag Negative (Negative) reviewed Critical Care Time Critical Care Time Critical Care Time: No Discharge Plan Discharge Clinical Impression: Upper respiratory infection Qualifiers: URI type: unspecified URI Qualified Code(s): J06.9 - Acute upper respiratory infection, unspecified Patient Disposition: Home, Self-Care Condition: Stable Instructions: Antibiotic Form, Upper Respiratory Infection (ED) Additional Instructions: Increase fluids especially juices and water Lydr-roo-ltckloo cough and cold medicine of your choice for your symptoms Cough tablets as directed for cough--do not bite, chew or suck on--swallow whole Tylenol or ibuprofen for any fever pain Zyrtec Claritin or Mariella daily include plain Sudafed in a.m. and early p.m. heat to the face 20-30 minutes 4-6 times a day for pain Salt water gargles, throat lozenges or throat sprays as desired If your symptoms persist, change or worsen significantly before you can contact your personal physician then please, without delay, go to the emergency department for further evaluation. Follow-up with PCP in 7-10 days or sooner if needed Patient Language: Uzbek Prescriptions: New benzonatate 200 mg capsule 200 mg PO TID PRN (Reason: cough) Qty: 20 0RF No Action desogestrel-ethinyl estradiol [Isibloom] 0.15-0.03 mg tablet sertraline 50 mg tablet albuterol sulfate 90 mcg/actuation HFA aerosol inhaler 2 puff inhalation Q4-6H PRN (Reason: shortness of breath or wheezing) 30 Days Qty: 8.5 0RF Follow-up/Referrals: PHYSICIAN NOT ON STAFF,NONSTAFF [Primary Care Provider] - Time of Disposition: 18:05 Quality [place] Coma Scale Eyes: Open Verbal: Oriented and Alert Motor: Follows Commands [place] Coma Total Score: 15
[2024-08-01 18:01] LABS: EDCOVIDSCREEN Negative (Negative); EDINFLUASCREEN Negative (Negative); EDINFLUBSCREEN Negative (Negative)
== END 2024-08-01 18:10 | disposition home or self-care (01) ==
PROVIDERS: Emergency Provider Registered Nurse
DX: J06.9 Acute upper respiratory infection, unspecified (principal); Z20.822 Contact with and (suspected) exposure to COVID-19
CPT/HCPCS: 87426; 87804; 99213; G0463